=== PATIENT | female | born 1985 | race African-American/Black ===

== ENCOUNTER 2016-11-04 01:19 | Emergency (ER) | payer OTHER ==
[~2016-11-04] VITALS: Ht 162.6 cm; Wt 52.2 kg
[2016-11-04] MEDS ORDERED: LORAZEPAM INJ 2 MG/ML VIAL IM ONE (02:30)
[2016-11-04] MEDS ORDERED: LORAZEPAM INJ 2 MG/ML VIAL ONE (02:34)
[2016-11-04] MEDS ORDERED: NAPROXEN 250 MG TABLET ONE (02:50)
[2016-11-04 03:47] VITALS: BP 151/62
== END 2016-11-04 03:48 | disposition home or self-care (01) ==
LOC: ER 01:23
DX: G40.909 Epilepsy, unspecified, not intractable, without status epilepticus (principal); Z88.8 Allergy status to other drugs, medicaments and biological substances; R79.89 Other specified abnormal findings of blood chemistry
CPT/HCPCS: 82962; 96372; 99283; A4606; J2060; Z7610

== ENCOUNTER 2016-11-25 23:55 | Emergency (ER) | payer OTHER ==
[~2016-11-25] VITALS: Ht 144.8 cm; Wt 52.2 kg
[2016-11-25 23:55] VITALS: BP 128/85
== END 2016-11-26 01:06 | disposition left against medical advice (07) ==
LOC: ER 23:59
DX: Z76.5 Malingerer [conscious simulation] (principal); Z88.8 Allergy status to other drugs, medicaments and biological substances; Z59.0 Homelessness
CPT/HCPCS: A4606; Z7502; Z7610

== ENCOUNTER 2017-05-04 10:19 | Emergency (ER) | payer OTHER ==
[~2017-05-04] VITALS: Ht 162.6 cm; Wt 62.1 kg
[2017-05-04] MEDS ORDERED: IV NS 0.9% 500 ML BAG IV ONE (10:30)
[2017-05-04] MEDS ORDERED: IV NS 0.9% 500 ML IV ONE (10:37)
[2017-05-04 10:41] LABS: EOSINOPHILS # (AUTO) 0.2 /CMM (0.0-0.7); EOSINOPHILS % (AUTO) 4.8 % (0.0-6.0); HEMATOCRIT 37 % (33-45); HEMOGLOBIN 11.4 g/dL (11.5-14.8); LYMPHOCYTES # (AUTO) 1.4 /CMM (0.8-4.8); LYMPHOCYTES % (AUTO) 30.5 % (20.0-44.0); MEAN CORPUSCULAR HEMOGLOBIN 25 PG (26.0-33.0); MEAN CORPUSCULAR HGB CONC 31 g/dl (31.0-36.0); MEAN CORPUSCULAR VOLUME 81 fL (82-100); MONOCYTES # (AUTO) 0.2 /CMM (0.1-1.30); NEUTROPHILS # (AUTO) 2.9 /CMM (1.8-8.9); NEUTROPHILS % (AUTO) 58.7 % (43.0-81.0); PLATELET COUNT (AUTO) 362 /CMM (150-450); RDW COEFFICIENT OF VARIATION 18.7 (11.5-15.0); RED BLOOD CELL COUNT(AUTO) 4.53 MIL/uL (4.0-5.2); WHITE BLOOD COUNT (AUTO) 4.7 K/uL (4.3-11.0)
[2017-05-04 10:49] LABS: CALCIUM, SERUM 8.1 mg/dL (8.5-10.1); CREATININE 0.9 mg/dL (0.6-1.3); POTASSIUM 3.8 mmol/L (3.5-5.1)
[2017-05-04 10:50] LABS: BILIRUBIN,URINE Negative (NEGATIVE); BLOOD, URINE Large Ery/uL (NEGATIVE); KETONES,URINE Negative (NEGATIVE); LEUKOCYTE ESTERASE ,URINE Negative (NEGATIVE); NITRITE, URINE Negative (NEGATIVE); PROTEIN,URINE Trace mg/dl (NEGATIVE); UGLUCOSE Negative (NEGATIVE)
[2017-05-04 10:53] LABS: APPEARANCE,URINE Hazy (CLEAR); COLOR,URINE Dark Yellow (YELLOW)
[2017-05-04 11:01] LABS: BACTERIA,URINE Rare /HPF (None Seen); RBC,URINE TOO NUMEROUS TO COUN /HPF (0-2); SQUAMOUS EPITHELIAL CELL,UR Few /HPF (None Seen)
[2017-05-04 11:46] VITALS: BP 124/77
== END 2017-05-04 11:47 | disposition home or self-care (01) ==
LOC: ER 10:20
DX: N93.8 Other specified abnormal uterine and vaginal bleeding (principal); N92.0 Excessive and frequent menstruation with regular cycle; G40.909 Epilepsy, unspecified, not intractable, without status epilepticus; Z88.8 Allergy status to other drugs, medicaments and biological substances; Z59.0 Homelessness
CPT/HCPCS: 36415; 76856; 80048; 81001; 84702; 85025; 96360; 99285; A4606; J7040; Z7610; 81000-TC